=== PATIENT | male | born 1950 | race Caucasian/White ===

== ENCOUNTER 2019-01-05 07:04 | Day surgery (SDC) | payer MEDICARE, OTHER ==
[~2019-01-05 07:04] MED LIST: Lactated Ringers 1,000 ML IV SCH; Sodium Chloride 0.9% 10 ML Syringe FLUSH PRN
[2019-01-05] MEDS ORDERED: Propofol 200 MG/20 ML SDV ONE ×2 (08:02→09:25)
[2019-01-05] MEDS ORDERED: fentaNYL 100 MCG/2 ML SDV ONE (08:02)
--- NOTE | 2019-01-06 10:12 | OR ---
REFERRING PROVIDER: Yvette Klein NP. PREOPERATIVE DIAGNOSIS: Colon cancer screening. The patient's last colonoscopy was about 10 years ago and previous one to that was maybe 5 years before. The patient does have history of some diverticulosis. Denies any bowel symptoms. POSTOPERATIVE DIAGNOSES: 1. Smooth cecal prominence measuring about 1 cm in size. 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 It did seem reducible with forceps. Cold biopsy x2 bites taken. 2. Two 2 mm polyp at 15 cm, removed with cold forceps. 3. Moderate sigmoid diverticulosis. 4. Mild internal hemorrhoids, not acutely inflamed. PROCEDURE: Colonoscopy with polypectomy x1 using cold forceps and cold biopsy x1 site (cecum). ANESTHESIA: Monitored anesthesia care. BOWEL PREP: Fair to good. Once I did reach the cecum, I did have to come out and clean the scope lens as there was a smear oily substance affecting the visual quality. DESCRIPTION OF PROCEDURE: Adilson is a 68-year-old male who was brought to the endoscopy suite after discussing risks and benefits of the procedure. Informed consent was obtained for conscious sedation and colonoscopy with or without biopsy and/or polypectomy. We also discussed possibility of missed lesions. Pre-procedure exam was unremarkable. IV, oxygen, and monitors were placed. The patient was placed in the left lateral decubitus position. Sedation was administered and a digital rectal exam was performed and unremarkable. Colonoscope was passed into the rectum and slowly advanced all the way to the cecum. Cecum was viewed, but was unable to take photograph due to poor picture quality given smeared camera lens. I did take cold biopsy x2 bites from the smooth cecal prominence which appeared to be inverted appendiceal orifice. This seemed to almost reduce using the forceps, but then would come back out towards the camera. It did not appear irritated or friable. After the biopsies were taken, I did remove the scope completely and cleaned the lens. Scope was then reinserted and advanced all the way to the cecum. Colonoscope was then slowly withdrawn. Mucosa closely observed in direct circumferential manner. The ascending colon unremarkable. Transverse colon remarkable. Descending colon unremarkable. The sigmoid colon revealed moderate diverticulosis. At the rectosigmoid junction, there was a 2 mm polyp at around 15 cm. Which was removed using cold forceps. Retroflexion was performed. Rectal mucosa revealed some mild internal hemorrhoids, not acutely inflamed. The patient tolerated the procedure well. The patient was monitored until that baseline status. Discharge instructions were reviewed and the patient was discharged in good condition. COMPLICATIONS: None. TOTAL TIME: 35 minutes. ESTIMATED BLOOD LOSS: About 1 mL. RECOMMENDATIONS/FOLLOW-UP: We will await results of path report to determine ideal followup interval. I would like to kindly thank Yvette Klein for this referral. DMB: 01/05/2019 11:03:26 MODL: 01/05/2019 13:25:18 /[id number]
== END 2019-01-05 11:28 | disposition home or self-care (01) ==
LOC: VM.SDS 07:04
PROVIDERS: ATTEND Family Medicine
DX: Z12.11 Encounter for screening for malignant neoplasm of colon (principal); D12.7 Benign neoplasm of rectosigmoid junction; K64.8 Other hemorrhoids; K57.30 Diverticulosis of large intestine without perforation or abscess without bleeding; E78.2 Mixed hyperlipidemia; Z87.891 Personal history of nicotine dependence; Z79.899 Other long term (current) drug therapy; Z88.6 Allergy status to analgesic agent; Z88.8 Allergy status to other drugs, medicaments and biological substances
CPT/HCPCS: 45380; J2704; J3010; J7120

== ENCOUNTER 2024-07-06 10:31 | Day surgery (SDC) | payer BC, MEDICARE, OTHER ==
[2024-07-06] MEDS: Lactated Ringers 1,000 ML IV SCH (10:55)
[2024-07-06] MEDS ORDERED: Propofol 200 MG/20 ML SDV ONE ×2 (11:13→12:33)
[2024-07-06] MEDS ORDERED: fentaNYL 100 MCG/2 ML SDV ONE (11:13)
== END 2024-07-06 14:00 | disposition home or self-care (01) ==
LOC: VM.SDS 10:31
PROVIDERS: ATTEND Family Medicine
DX: Z12.11 Encounter for screening for malignant neoplasm of colon (principal); D12.0 Benign neoplasm of cecum; K57.30 Diverticulosis of large intestine without perforation or abscess without bleeding; F41.9 Anxiety disorder, unspecified; Z86.0100 Personal history of colon polyps, unspecified
CPT/HCPCS: 00811; 88305; 99100; J2704; J3010; J7120